=== PATIENT | female | born 1950 | race Two or more races ===

== ENCOUNTER 2018-07-29 12:36 | Outpatient (CLI) | payer OTHER | END 2018-07-29 15:49 | disposition home or self-care (01) | LOC: MRI 12:36 | DX: M54.5 Low back pain (principal); M54.6 Pain in thoracic spine; M25.551 Pain in right hip | CPT/HCPCS: 73721 ==

== ENCOUNTER → 2019-03-30 | Outpatient (CLI) | payer OTHER | END | disposition home or self-care (01) | LOC: RAD 15:46 | DX: M25.561 Pain in right knee (principal); M25.551 Pain in right hip ==